=== PATIENT | female | born 1970 | race African-American/Black ===

== ENCOUNTER 2018-01-19 12:18 | Emergency (ER) | payer SELFPAY ==
[~2018-01-19] VITALS: Ht 154.9 cm; Wt 108.2 kg
[2018-01-19 12:30] VITALS: BP 157/114
[2018-01-19] MEDS ORDERED: LISI-662 PO (12:44)
[2018-01-19] MEDS ORDERED: FAMO20 PO (12:44)
[2018-01-19] MEDS ORDERED: ALBU8HFA IH (12:44)
[2018-01-19] MEDS ORDERED: HYDR25TA PO (12:44)
[2018-01-19] MEDS ORDERED: COLL140L TP (12:44)
[2018-01-19] MEDS ORDERED: PRED20 PO (12:44)
[2018-01-19] MEDS ORDERED: MECL12.585 PO (12:44)
[2018-01-19] MEDS ORDERED: DIPH25 PO (12:44)
[2018-01-19] MEDS ORDERED: IBUP-2070 PO (12:44)
[2018-01-19] MEDS ORDERED: GABA-531 PO (12:44)
[2018-01-19] MEDS ORDERED: BECL10.62 IH (12:44)
== END 2018-01-19 14:46 | disposition left against medical advice (07) ==
LOC: EMS 12:19
DX: Z53.21 Procedure and treatment not carried out due to patient leaving prior to being seen by health care provider (principal)